=== PATIENT | male | born 1975 | race American Indian/Alaskan Native ===

== ENCOUNTER 2024-03-09 10:39 | Emergency (ER) | payer OTHER, SELFPAY ==
[2024-03-09 10:55] VITALS: BP 153/90; PULSE 79; RESP 20; TEMP 36.6; O2SAT 96; BMI 38.4
--- NOTE | 2024-03-09 11:00 | XR_ITS ---
Examination: AP lateral chest 2 views Technique: Upright AP lateral chest 2 views Exam date and time: March 09, 2024 1122 hrs. Comparison February 18, 2020 Indications: Coughing difficulty breathing beginning 3 days ago. Findings: Mild enlargement cardiac contour Mild vascular congestion Suspicious for early pneumonia left base obscuring detail medial portion left hemidiaphragm Impression: Suspicious for early pneumonia left base
[2024-03-09] MEDS: DEXAMETHASONE SOD PHOS INJ 10 MG/ML VIAL PO (11:06)
[2024-03-09 11:09] VITALS: PULSE 84; RESP 20; O2SAT 98
[2024-03-09] MEDS: ALBUTEROL/IPRATROPIUM (Duoneb) RT SOL 3 ML NEBU INH (11:12)
--- NOTE | 2024-03-09 12:01 | PD.EDSOB ---
ED SOB =RME/HPI General Chief Complaint: Shortness of Breath/Dyspnea Stated Complaint: HARD TIME BREATHING Time Seen by Provider: 03/09/24 10:44 Arrival date/time: 03/09/24 10:39 48-year-old male with history of asthma presents emergency department complaint of shortness of breath and wheezing Limitations: no limitations Related Data Previous Rx's ?Medication ?Instructions ?Recorded ibuprofen 600 mg tablet 600 mg PO Q6H PRN pain #14 tabs 10/11/19 azithromycin 500 mg tablet See Rx Instructions PO .COMPLEX #6 03/09/24 tabs benzonatate 100 mg capsule 100 mg PO TID #14 caps 03/09/24 Allergies Allergy/AdvReac Type Severity Reaction Status Date / Time No Known Allergies Allergy Verified 03/09/24 10:41 Review of Systems Review of Systems Systems Reviewed: All systems reviewed, normal except as documented Constitutional Constitutional: Reports system reviewed and no additional complaints, except as documented, Denies fever(s) and Denies headache(s) Eyes Eyes: Reports system reviewed and no additional complaints, except as documented and Denies blurry vision ENT Ears, Nose, Mouth, and Throat: Reports system reviewed and no additional complaints, except as documented, Denies headache(s), Denies nasal congestion and Denies nasal discharge Cardiovascular Cardiovascular: Reports system reviewed and no additional complaints, except as documented, Denies chest pain and Denies dyspnea Respiratory Respiratory: Reports system reviewed and no additional complaints, except as documented, Reports chest congestion, Reports cough and Denies dyspnea Gastrointestinal Gastrointestinal: Reports system reviewed and no additional complaints, except as documented and Denies abdominal pain Integumentary/Breasts Skin/Breast: Reports system reviewed and no additional complaints, except as documented and Denies rash Neurologic Neurologic: Reports system reviewed and no additional complaints, except as documented, Reports as per HPI and Denies headache(s) Past Medical History Past Medical History CARDIAC: Negative Congestive Heart Failure RESPIRATORY: Negative Chronic Obstructive Pulmonary Disease (COPD) GENITOURINARY: Negative Renal Disease ENDOCRINE: Negative Diabetes Mellitus Type 1 or Diabetes Mellitus Type 2 Social History SMOKING STATUS: Never smoker SUBSTANCE USE: methamphetamine ED Exam General Limitations: Present no limitations General appearance: Present alert and in no apparent distress Head Head exam: Present atraumatic, normocephalic and normal inspection Eye Eye exam: Present normal appearance, PERRL and EOMI; Absent conjunctival injection ENT ENT exam: Present normal exam, normal oropharynx and mucous membranes moist Neck Neck exam: Present normal inspection, full ROM and trachea midline Chest Chest inspection: Present normal inspection and symmetric chest wall rise Respiratory Respiratory exam: Present normal lung sounds bilaterally; Absent respiratory distress, wheezes, stridor or accessory muscle use Cardiovascular Cardiovascular exam: Present regular rate, normal rhythm and normal heart sounds Abdominal Exam Abdominal exam: Present soft and normal bowel sounds; Absent distention, tenderness, guarding, rebound or rigidity Extremities Exam Extremities exam: Present normal inspection and full ROM Back Exam Back exam: Present normal inspection and full ROM Neurological Exam Neurological exam: Present alert, oriented X3, CN II-XII intact, normal gait and reflexes normal; Absent motor sensory deficit Psychiatric Psychiatric exam: Present normal affect and normal mood Skin Skin exam: Present warm, dry, intact and normal color; Absent rash Course Quality Measures none Orders Category Date Time Status Bedside COVID-19 Antigen Test NOW Care 03/09/24 11:00 Completed Bedside Influenza A&B Antigen Test NOW Care 03/09/24 11:00 Completed XR chest 2V Stat Exams 03/09/24 11:00 Completed Albuterol/Ipratr Rt Rosalba [Duoneb Rt Rosalba] Med 03/09/24 11:00 Discontinued 3 ml INH X1 ONE Dexamethasone Inj [Decadron Inj] Med 03/09/24 11:00 Discontinued 10 mg PO X1 ONE Vital Signs Vital signs: Vital Signs Temperature 97.8 F 03/09/24 10:55 Pulse Rate 79 03/09/24 10:55 Respiratory Rate 20 03/09/24 10:55 Blood Pressure 153/90 H 03/09/24 10:55 Pulse Oximetry (%) 96 03/09/24 10:55 Oxygen Delivery Method Room Air 03/09/24 10:55 O2 saturation 96% room air within normal limits Shortness of Breath / Dyspnea MDM Narrative MDM Narrative:: 48-year-old male with history of asthma presents emergency department complaint of shortness of breath and wheezing On exam patient well-appearing patient does not appear ill or toxic in no acute distress Patient for flu and COVID both which are negative Chest x-ray obtained consistent with pneumonia Patient breathing treatment steroids At time of reeval patient reports symptoms have significantly improved Patient discharged home in no distress to follow-up with primary care doctor in the next 24 to 48 hours and for any worsening symptoms to return to the ER immediately Patient data External records reviewed:: [facility] previous records Clinical information provided by:: patient Social determinants that could affect healthcare access:: none Patient has the following chronic illnesses:: None How is presenting disease/condition affected by chronic disease/condition?: no chronic disease Evaluation data The following diagnostics were reviewed and interpreted by me:: lab results and radiology exam(s) Lab and/or radiology exams considered but not ordered:: Labs radiology obtain Interpretation Summary: Reviewed by me Medications / Prescriptions Medications or Prescriptions considered but not ordered:: Given Medication administrations:: Medication Administration History Discontinued Medications Albuterol/Ipratropium (Albuterol/Ipratropium (Duoneb) Rt Rosalba 3 Ml Nebu) 3 ml INH X1 ONE Stop: 03/09/24 11:01 Last Admin: 03/09/24 11:12 Dose: 3 ml Documented By: BONY Dexamethasone Sodium Phosphate (Dexamethasone Sod Phos Inj 10 Mg/Ml Vial) 10 mg PO X1 ONE Stop: 03/09/24 11:01 Last Admin: 03/09/24 11:06 Dose: 10 mg Documented By: OA Given Consultations Consultation(s) initiated? (list below): No Diagnosis Shortness of Breath Differential Diagnosis: acute exacerbation of chronic obstructive airways disease, congestive heart failure, community acquired pneumonia and asthma with exacerbation Most likely diagnosis given after review of the tests above:: Pneumonia, asthma Admission Indicated Admission indicated?: not indicated Admission Request Was there a request for admission?: No Disposition Plan Disposition Plan: Discharge Discharge Attestation Discharge Attestation: The patient and all family members were given an opportunity to ask questions and understood the discharge instructions. Discharge instructions specifically effects, indications for sooner follow up or return to the emergency department, and the expected course of current diagnosis. Patient condition: Stable Discharge Plan Plan Patient Disposition: HOME (Self Care) Disposition Comment: Stable Prescriptions/Referrals Prescriptions/Med Rec: New benzonatate 100 mg capsule 100 mg PO TID Qty: 14 0RF azithromycin 500 mg tablet See Rx Instructions .ROUTE .COMPLEX Qty: 6 0RF Rx Instructions: take 500 mg today (day 1), then 250 mg for 4 days (days 2-5) No Action ibuprofen 600 mg tablet 600 mg PO Q6H PRN (Reason: pain) Qty: 14 0RF Referrals: Ramo Green FNP [Primary Care Provider] - 03/11/24 Problem List Clinical Impression: Pneumonia Patient/Caregiver Discharge Instructions Education Materials: Lung Anatomy Additional Instructions: Please follow up with your primary care doctor in the next 24-48hrs for any worsening symptoms return here immediately Print Language: Serbian Stand Alone Forms: Maria De Jesus Award Info., Patient Portal Info Letter PA/RESIDENT PROGRAMS ASSISTANT Supervising Physician PA/RESIDENT PROGRAMS ASSISTANT Supervising Physician: Dr Whittington
== END 2024-03-09 12:35 | disposition home or self-care (01) ==
PROVIDERS: Emergency Provider Emergency Medicine; PCP Nurse Practitioner
DX: J18.9 Pneumonia, unspecified organism (principal)
CPT/HCPCS: 71046; 87400; 87811; 94640; 99283; A9270; J1100

== ENCOUNTER → 2024-05-09 | Outpatient (BNVA) | payer MEDICAID, SELFPAY | END | disposition home or self-care (01) | PROVIDERS: PCP Nurse Practitioner Family; Referring Provider Nurse Practitioner Family; Visit Provider Urology | DX: N52.9 Male erectile dysfunction, unspecified (principal); N40.1 Benign prostatic hyperplasia with lower urinary tract symptoms; N13.8 Other obstructive and reflux uropathy; R35.1 Nocturia; I10 Essential (primary) hypertension; E78.2 Mixed hyperlipidemia; R53.83 Other fatigue; E55.9 Vitamin D deficiency, unspecified; Z80.42 Family history of malignant neoplasm of prostate | CPT/HCPCS: 81003; 99212; G0463 ==